=== PATIENT | female | born 1940 | race Asian ===

== ENCOUNTER 2022-08-14 22:45 | Inpatient (IN) | payer OTHER, MEDICAID ==
[~2022-08-14] VITALS: Ht 154.9 cm; Wt 51.7 kg
[2022-08-14] MEDS: 0.45% NACL 1,000 ML IV SCH
--- NOTE | 2022-08-14 22:55 | NUR ---
RAPID RESPONSE -Called Rapid response team DIANA upon pt arrived to [facility] unit at room 119-AJohnson GARZON RN and team are at bedside. Rapid Response team Jailyn and Junaid resp therapists, Destineeporsha nurse, Georgie Biggs (building construction supervisor) are in the room. VS 99.2, 85/55,118,22, b2wwp=80% with Niy3=492%. Jailyn-RT stated that she will wean patient @50% later. Will recheck BP and notify Dr. Wright. Family is at bedside Leif son-POA and sister. EKG completed shows uncontrolled Afib with RVR 108. -Patient is direct admission w/out no order. Will call md to get an order once pt is stabilize.
--- NOTE | 2022-08-14 23:08 | NUR ---
NOTES; CALLED X2 Dr. Wright,NO ANSWER, LEFT MESSAGE FOR MD TO RETURN CALLBACK TO GET ADMISSION ORDER. -WILL CALL AGAIN.
--- NOTE | 2022-08-14 23:10 | NUR ---
NOTES; DR. RED CALLED BACK AND RECEIVED AN ORDER TO ADMIT PATIENT TO INPATIENT TELEMETRY WITH DX LIVER CIRRHOSIS, ESRD, STROKE; NPO MIDNIGHT FOR PARACENTESIS IN AM, IVF 1/2NS @ 40 AFTER NPO; HAVE RADIOLOGIST PERFORM PARACENTESIS PER MD; CONSULTS (GI-DR. WICK, PULMON-MIKKI, AND CARDIO-Lyly PORTER); ACCUCK Q 6 WITH REGULAR INSULIN COVERAGE. NO ORDERS IN AM (LAB, CXR, OR EKG). BLOOD CX AND NO MEDICATION FOR AFIB PER MD.
--- NOTE | 2022-08-14 23:15 | NUR ---
NOTES; -Pt is nonverbal, a/ox1-2. Trachea w/ vent setting at VM=697, Xq89=939%, peep=5,AC=18. Jailyn RT will wean off Fio2 later,w7yux=451% now. Pacemaker Left chest wall. TAYLOR old shunt both thrill and bruit present. TAYLOR midline was placed on 07/31/22 and hx of c-diff (now tested negative) per Homar-nurse's statement on a phone from [place]. Flexiseal in place. Generalized edematous noted. NGT on Lt nares. Son & daughter are still at bedside. Addendum: 08/15/22 at 0213 by [facility], GUILHERME RN ADDITIONAL NOTES; PERMACATH RIGHT UPPER CHEST WALL PRESENT. LAST HEMODIALYSIS REMOVED 1.5 LITER (08/14) AND 1.2 LITER (08/13) PER HOMAR-NURSE ENDORSED ON PHONE FROM [facility].
[2022-08-14 23:51] VITALS: BP_SYST 77
--- NOTE | 2022-08-14 23:55 | NUR ---
NOTIFIED DR. RED REGARDING HYPOTENSION (BP=77/45) AND PT IS STILL UNCONTROLLED AFIB 108-111. -TRANSFER PATIENT TO ICU PER MD. WILL NOTIFY ANDRES CORONADO NURSE.
[2022-08-15] VITALS (31 sets, daily range): BP systolic 11–130
--- NOTE | 2022-08-15 00:05 | NUR ---
TRANSFERRING TO ICU BY BED -ENDORSED TO PERCY MOLINA TO CONTINUITY OF CARE. Pt's condition stable. Family is at waiting room. Addendum: 08/15/22 at 0214 by [facility], GUILHERME RN ADDITIONAL; ICU BED 4.
--- NOTE | 2022-08-15 00:05 | NUR ---
TELEMETRY TRANSFER Pt received from tele via bed accompanied by Tele staff and RT. Pt arrived with BVM in use. Pt non-verbal with eyes open with left eye gaze. Pt has limited left arm movement. Generalized edema present. Left nare NGT clamped. L upper arm midline PICC. Left upper chest Pacemaker noted, Pt in controlled AFIB. Right upper chest Perma cath present. Right upper arm with AV shunt bruit & thrill present. Pt resting quietly.
--- NOTE | 2022-08-15 02:00 | NUR ---
CHANGE IN CAREGIVER Report given to Rashad VANEGAS.
[2022-08-15] MEDS ORDERED: RESEYE BOTH EYES (02:37)
[2022-08-15] MEDS ORDERED: DARB100V SUBCUT (02:37)
[2022-08-15] MEDS ORDERED: acetylcysteine INH (02:37)
[2022-08-15] MEDS ORDERED: ASPI-1393 GT (02:37)
[2022-08-15] MEDS ORDERED: TYLL650 PO (02:37)
[2022-08-15] MEDS ORDERED: LACT10SO6 GT (04:06)
[2022-08-15] MEDS ORDERED: [UNRECOGNIZED DRUG - CODE] IV (04:06)
[2022-08-15] MEDS ORDERED: FLUC200T IVPB (04:06)
[2022-08-15] MEDS ORDERED: HEPA500015 IV (04:06)
[2022-08-15] MEDS ORDERED: DONE10TA44 GT (04:06)
[2022-08-15] MEDS ORDERED: LANS30CA53 GT (04:06)
[2022-08-15] MEDS ORDERED: INSU100V7 SUBCUT (04:06)
[2022-08-15] MEDS ORDERED: DEXT50DI5 IV ×2 (04:06)
[2022-08-15] MEDS ORDERED: IPRA4AER INH (04:06)
[2022-08-15] MEDS ORDERED: COLL100 PO ×2 (04:06)
[2022-08-15] MEDS ORDERED: FOLI-43 GT (04:06)
[2022-08-15] MEDS ORDERED: HEPA500015 SUBCUT (04:06)
[2022-08-15] MEDS ORDERED: SILV50CR43 TP (04:43)
[2022-08-15] MEDS ORDERED: MERO500V23 IV (04:43)
[2022-08-15] MEDS ORDERED: MIDO5TAB4 GT (04:43)
[2022-08-15] MEDS ORDERED: RIFA200T10 GT (04:43)
[2022-08-15] MEDS ORDERED: [UNRECOGNIZED DRUG - OTHER] GT (04:43)
[2022-08-15] MEDS ORDERED: THIA100T70 GT (04:43)
[2022-08-15] MEDS ORDERED: NL IV (04:43)
[2022-08-15] MEDS ORDERED: SYN50 INJ (04:43)
[2022-08-15] MEDS ORDERED: SENN8.6T19 GT (04:43)
[2022-08-15] MEDS ORDERED: METO25TA6 IV (04:43)
[2022-08-15] MEDS ORDERED: ONDA2VIA4 IV (04:43)
[2022-08-15] MEDS ORDERED: MIDO10TA GT (04:43)
[2022-08-15] MEDS ORDERED: ZINC113O14 TP (04:43)
[2022-08-15] MEDS ORDERED: POLY17PO4 GT (04:43)
[2022-08-15 05:16] LABS: BASOPHILS % (AUTO) 0.3 % (0.0-2.0); EOSINOPHILS # (AUTO) 0.2 K/uL (0.0-0.4); EOSINOPHILS % (AUTO) 1.6 % (0.0-4.0); HEMATOCRIT 27.5 % (36-48); LYMPHOCYTES # (AUTO) 0.8 K/uL (1.0-5.5); LYMPHOCYTES % (AUTO) 7.2 % (20.5-51.5); MEAN CORPUSCULAR HEMOGLOBIN 36 pg (27-31); MEAN CORPUSCULAR HGB CONC 33 % (32-36); MEAN CORPUSCULAR VOLUME 110 fL (79.0-98.0); MONOCYTES # (AUTO) 1.1 K/uL (0.0-1.0); MONOCYTES % (AUTO) 9.5 % (1.7-9.3); NEUTROPHILS # (AUTO) 9.4 K/uL (1.8-7.7); NEUTROPHILS % (AUTO) 81.4 % (40.0-70.0); PLATELET COUNT (AUTO) 160 K/uL (130-430); RED BLOOD CELL COUNT(AUTO) 2.51 MIL/uL (4.2-6.2); RED CELL DISTRIBUTION WIDTH 20.8 % (9.0-15.0); WHITE BLOOD COUNT (AUTO) 11.5 K/uL (4.8-10.8)
[2022-08-15 05:28] LABS: ANION GAP 11 (5-15); CALCIUM 8.8 mg/dL (8.4-11.0); CHLORIDE 104 mmol/L (98-107); CREATININE 2.83 mg/dL (0.55-1.30); GLUCOSE 144 mg/dL (70-99); UREA NITROGEN, BLOOD 39 mg/dL (8-21)
--- NOTE | 2022-08-15 05:35 | NUR ---
CONSULTATION PAGED/CALLED Reason for Consultation: Hypoxia Person Who was Notified: Fortunato Consulting Physician: Dr Lopez Event Representative Specialty: Pulmonary Ordering Physician: Dr Wright
--- NOTE | 2022-08-15 05:40 | NUR ---
CONSULTATION PAGED/CALLED Reason for Consultation: AFib Person Who was Notified: Purvi Consulting Physician: Dr Vargas Barrel Washer Specialty: Cardiology Ordering Physician: Dr Wright
--- NOTE | 2022-08-15 05:41 | NUR ---
CONSULTATION PAGED/CALLED Reason for Consultation: GT Placement Person Who was Notified: Margot Consulting Physician: Dr Smalls Marketing Support Coordinator Specialty: GI Ordering Physician: Dr Wright
[2022-08-15 05:53] LABS: INR 1.2 (0.8-1.2); PROTHROMBIN TIME 12.2 SECS (9.5-12.5)
--- NOTE | 2022-08-15 07:30 | NUR ---
Opening Received report on pt. HR in 160s, pt in no signs of pain or distress, trach to vent. Pt able to track but does not follow commands, weak arm movements. Pt with IVF infusing to left UA midline. Flexiseal in place with brown liquid stool. Skin issues present. Offloaded heels with pillows.
--- NOTE | 2022-08-15 07:40 | NUR ---
Dr. Cooper notified regarding pt's HR in 160s with no standing orders. New orders made for adenosine 6 mg & 12 mg if no resolve, and EKG.
[2022-08-15] MEDS ORDERED: ADENOSINE 6MG/2ML VIAL IVP ONE ×2 (07:45)
[2022-08-15] MEDS ORDERED: ADENOSINE 6MG/2ML VIAL ONE ×2 (07:49→08:01)
[2022-08-15 08:13] LABS: ALBUMIN 3.3 g/dL (3.4-4.8); BILIRUBIN,DIRECT 0.8 mg/dL (0.0-0.3); TOTAL BILIRUBIN 1.8 mg/dL (0.0-1.0)
[2022-08-15] MEDS ORDERED: dilTIAZem HCL IVP 5 MG/ML VIAL IVP ONE (08:15)
--- NOTE | 2022-08-15 08:15 | NUR ---
HR still 150-160s despite receiving adenosine 6 mg and 12 mg IVP per MD order. Notified Dr. Palma Cooper regarding outcome, new orders made for cardizem IVP and cardizem drip.
[2022-08-15] MEDS ORDERED: D5W 1,000 ML IV PRN (08:30)
[2022-08-15] MEDS ORDERED: GLUCOSE (DEXTROSE) ORAL GEL -Adults PO PRN (08:30)
[2022-08-15] MEDS ORDERED: DEXTROSE 50%-WATER 50 ML DISP.SYRIN IVP PRN (08:30)
[2022-08-15] MEDS ORDERED: IPRATROPIUM/ALBUTEROL SULFATE 3 ML AMPUL.NEB (DUONEB) INH PRN (10:00)
[2022-08-15] MEDS ORDERED: CEFAZOLIN 1 GM IVPB PREMIX 50 ML IV ONE (10:15)
--- NOTE | 2022-08-15 10:47 | NUR ---
Spoke with pt's son Maximiliano White regarding updates and current condition. Son is aware of PEG tube placement for tomorrow, states he will be in later to sign consent.
[2022-08-15] MEDS: PHENYLEPHRINE HCL 100 MG in NS 240 ML IV PRN (11:54)
[2022-08-15] MEDS: INSULIN REGULAR, HUMAN 100 UNITS/ML, 3 ML VIAL (humuLIN R) SUBCUT PRN (12:15)
[2022-08-15] MEDS: DILTIAZEM HCL 30 MG TABLET PO SCH ×2 (14:19→22:00)
--- NOTE | 2022-08-15 15:11 | NUR ---
RT NOTES FIO2 to 0.30.
[2022-08-15] MEDS: LACTULOSE 20 GM/30 ML UDC NG SCH ×2 (15:19→21:00)
--- NOTE | 2022-08-15 19:15 | NUR ---
Closing Pt currently in dialysis. PEG consent signed and placed in chart. Pt's son, Maximiliano, requesting for social work and case management assistance for placement post procedure and stabilization. Endorsed plan of care to RN.
--- NOTE | 2022-08-15 19:54 | NUR ---
HIGH ALERT NOTE: Called Dr. Osorio back at identified within the medical roster to verify physician authenticity. For Heparin Dialysis flush.
[2022-08-15] MEDS ORDERED: HEPARIN SODIUM,PORCINE 5,000 UNITS/ML VIAL MC ONE (20:00)
[2022-08-16] VITALS (36 sets, daily range): BP systolic 85–147
[2022-08-16] MEDS: 0.45% NACL 1,000 ML IV SCH ×2 (01:29→17:04)
[2022-08-16] MEDS: DILTIAZEM HCL 30 MG TABLET PO SCH ×3 (05:31→22:41)
[2022-08-16 05:41] LABS: BASOPHILS # (AUTO) 0.1 K/uL (0.0-0.2); BASOPHILS % (AUTO) 0.5 % (0.0-2.0); EOSINOPHILS # (AUTO) 0.1 K/uL (0.0-0.4); EOSINOPHILS % (AUTO) 0.8 % (0.0-4.0); HEMATOCRIT 27.1 % (36-48); HEMOGLOBIN 8.8 g/dL (12.0-16.0); LYMPHOCYTES # (AUTO) 0.8 K/uL (1.0-5.5); LYMPHOCYTES % (AUTO) 6.5 % (20.5-51.5); MEAN CORPUSCULAR HEMOGLOBIN 36 pg (27-31); MEAN CORPUSCULAR HGB CONC 32 % (32-36); MEAN CORPUSCULAR VOLUME 110 fL (79.0-98.0); MONOCYTES % (AUTO) 7.8 % (1.7-9.3); NEUTROPHILS # (AUTO) 10.4 K/uL (1.8-7.7); NEUTROPHILS % (AUTO) 84.4 % (40.0-70.0); PLATELET COUNT (AUTO) 191 K/uL (130-430); RED BLOOD CELL COUNT(AUTO) 2.48 MIL/uL (4.2-6.2); RED CELL DISTRIBUTION WIDTH 20.2 % (9.0-15.0); WHITE BLOOD COUNT (AUTO) 12.3 K/uL (4.8-10.8)
[2022-08-16 06:03] LABS: ANION GAP 10 (5-15); CALCIUM 8.3 mg/dL (8.4-11.0); CHLORIDE 102 mmol/L (98-107); CREATININE 1.97 mg/dL (0.55-1.30); GLUCOSE 120 mg/dL (70-99); UREA NITROGEN, BLOOD 29 mg/dL (8-21)
[2022-08-16 06:18] LABS: INR 1.2 (0.8-1.2); PROTHROMBIN TIME 12.2 SECS (9.5-12.5)
[2022-08-16] MEDS ORDERED: SIMETHICONE 40 MG/0.6 ML ML ONE (07:00)
[2022-08-16] MEDS ORDERED: fentaNYL CITRATE/PF 100 MCG/2 ML AMP ONE (07:00)
[2022-08-16] MEDS ORDERED: MIDAZOLAM HCL 5 MG/5 ML VIAL ONE (07:00)
[2022-08-16] MEDS ORDERED: CEFAZOLIN 1 GM IVPB PREMIX 50 ML IV ONE (07:00)
--- NOTE | 2022-08-16 07:45 | NUR ---
MD BECK AT BEDSIDE. STATED PEG TUBE WILL NOT BE PLACED UNTIL PARACENTESIS IS COMPLETED. VERIFIED ORDER FOR PARACENTESIS, ORDER WAS CANCELLED BY RADIOLOGIST DUE TO NOT ENOUGH FLUID FOR PROCEDURE. MARC VANEGAS NOTIFIED TO NOTIFY MD BECK. WILL AWAITING ADDITIONAL ORDERS.
[2022-08-16] MEDS: LACTULOSE 20 GM/30 ML UDC NG SCH ×3 (09:50→21:12)
--- NOTE | 2022-08-16 10:00 | NUR ---
SPOKE TO MARC VANEGAS FROM SURGERY, PLAN IS TO PERFORM PARACENTESIS TO DRAIN ANY EXISTING FLUIDS PRIOR TO PEG TUBE PLACEMENT. PROCEDURE RE ORDERED UNDER MD RED BY MARC VANEGAS. TO CLARIFY PROCEDURE WITH JEWEL INSPECTOR.
--- NOTE | 2022-08-16 10:10 | NUR ---
MD RED BEDSIDE ASSESSING PATIENT AND SPEAKING WITH SON LUDY. NO NEW ORDERS RECEIVED. REINFORCED THAT PARACENTESIS MUST BE COMPLETED PRIOR TO PEG TUBE PLACEMENT. 1/2NS@40CC CLARIFIED DUE TO PATIENT ON HEMODIALYSIS. OK TO CONT IVF UNTIL PEG TUBE PLACED AND PATIENT STARTED TUBE FEEDING PER MD RED. PT VSS. NAD NOTED. WILL CONT TO MONITOR PT.
--- NOTE | 2022-08-16 10:26 | NUR ---
MD GODINEZ MADE AWARE OF NEW ID CONSULT.
--- NOTE | 2022-08-16 15:00 | NUR ---
MD DUMONT RADIOLOGIST AT BEDSIDE FOR PARACENTESIS WITH U/[employer] TECH AT BEDSIDE. TIMEOUT PERFORMED AT 1600. PROCEDURE STARTED AT 1604. PROCEDURE COMPLETED AT 1612. TOTAL OF 600CC DRAINED FOR PEG PLACEMENT TOMORROW. PER MD DUMONT, NO PATHOPHYSIOLOGY ORDERS ENTERED, PROCEDURE SIMPLY TO DRAIN FLUID PRIOR TO PEG PLACEMENT TO AVOID LEAKING PER MD BECK. PT TOLERATED WELL. VSS. NAD NOTED. WILL CONT TO MONITOR PT.
[2022-08-16] MEDS: CEFEPIME 2 GM in D5W 100 ML IV SCH (16:00)
--- NOTE | 2022-08-16 16:20 | NUR ---
Developer Analyst re: D/C planning after the discharge In to speak with the son, Maximiliano this afternoon in the ICU. I met with the son privately in the waiting area of ICU. Per son, the patient at one time was living in her ow home with her , however since her decline, she has been in a few different hospitals. The patient was the caregiver to her . She does not have a Power of Dry Cleaning Machine Operator. her PCP is Dr. Leal in [place]. The son states that at one point they were trying to complete a Power of Dry Cleaning Machine Operator, however never got to complete it. He was inquiring on what other options he had. He indicated there is a family trust, but he was looking at getting POA. I asked if he was sure there medical POA was not written within the trust, but he states he didn't think so, because he had not seen it. The son was advised that if there is no POA, the patient is not of sound mind and able to make decisions for themselves, then the next option is to get conservatorship through the court. I informed him that conservatorship means that he is requesting a tenoner operator the ability to make decisions on behalf of the patient, which requires a process to take place. The son was insistent that he wanted to put something in place quickly, however I told him that conservatorship is not a quick process; it can take months. I directed the son to the local courts system to start the process. He requested that the process start here at the hospital. I advised him that the hospital does not start the process, but he needed to go to the court to get an application. I Provided the son with contact information of the [facility] Department of Mental Health for additional assistance. As to discharge, the son advised that he wanted his mother to return back to [facility].
[2022-08-16] MEDS: INSULIN REGULAR, HUMAN 100 UNITS/ML, 3 ML VIAL (humuLIN R) SUBCUT PRN (18:41)
[2022-08-17] VITALS (43 sets, daily range): BP systolic 85–136
[2022-08-17 05:47] LABS: BASOPHILS % (AUTO) 0.3 % (0.0-2.0); EOSINOPHILS # (AUTO) 0.1 K/uL (0.0-0.4); EOSINOPHILS % (AUTO) 0.4 % (0.0-4.0); HEMATOCRIT 26.5 % (36-48); HEMOGLOBIN 8.7 g/dL (12.0-16.0); LYMPHOCYTES # (AUTO) 0.6 K/uL (1.0-5.5); MEAN CORPUSCULAR HEMOGLOBIN 36 pg (27-31); MEAN CORPUSCULAR HGB CONC 33 % (32-36); MEAN CORPUSCULAR VOLUME 109 fL (79.0-98.0); MONOCYTES % (AUTO) 7.9 % (1.7-9.3); NEUTROPHILS # (AUTO) 11.1 K/uL (1.8-7.7); NEUTROPHILS % (AUTO) 86.4 % (40.0-70.0); PLATELET COUNT (AUTO) 218 K/uL (130-430); RED BLOOD CELL COUNT(AUTO) 2.43 MIL/uL (4.2-6.2); RED CELL DISTRIBUTION WIDTH 20.2 % (9.0-15.0); WHITE BLOOD COUNT (AUTO) 12.8 K/uL (4.8-10.8)
[2022-08-17 06:03] LABS: ANION GAP 12 (5-15); CALCIUM 8.3 mg/dL (8.4-11.0); CHLORIDE 100 mmol/L (98-107); CREATININE 2.68 mg/dL (0.55-1.30); GLUCOSE 152 mg/dL (70-99); UREA NITROGEN, BLOOD 52 mg/dL (8-21)
[2022-08-17] MEDS: DILTIAZEM HCL 30 MG TABLET PO SCH ×3 (06:43→18:00)
--- NOTE | 2022-08-17 07:00 | NUR ---
SPOKE TO DR. Palma PORTER MD INFORMED ABOUT INCREASE IN HR.ORDERS TO RESTART CARDIZEM DRIP AND INCREASE PO DOSE. WILL CARRY OUT ORDER.
[2022-08-17] MEDS ORDERED: SIMETHICONE 40 MG/0.6 ML ML ONE (07:12)
[2022-08-17] MEDS ORDERED: fentaNYL CITRATE/PF 100 MCG/2 ML AMP ONE (07:12)
[2022-08-17] MEDS ORDERED: MIDAZOLAM HCL 5 MG/5 ML VIAL ONE (07:13)
[2022-08-17] MEDS ORDERED: CEFAZOLIN 1 GM IVPB PREMIX 50 ML IV ONE (08:00)
[2022-08-17] MEDS: LACTULOSE 20 GM/30 ML UDC NG SCH ×3 (09:00→21:00)
[2022-08-17] MEDS ORDERED: PANTOPRAZOLE SODIUM 40 MG/VIAL (PROTONIX) IVP ONE (10:00)
[2022-08-17] MEDS: FLUCONAZOLE 100 mg/ NS 50 ML IV SCH (11:51)
[2022-08-17] MEDS: CEFEPIME 2 GM in D5W 100 ML IV SCH (14:52)
--- NOTE | 2022-08-17 23:04 | NUR ---
[facility] SPOKE WITH YUNG NURSING DRENCHER AT [facility] REGARDING PT TRANSFER. FAMILY IS UNCOMFORTABLE WITH THE PT TRANSPORTING THIS LATE AT NIGHT D/T PREVIOUS EXPERIR Addendum: 08/17/22 at 2308 by Johana Brown RN NOTE CONTINUED: EXPERIENCES. TRANSPORT ORIGINALLY SCHEDULED FOR 1999 ON 08/17 AND HAS BEEN CONTINUALLY DELAYED THIS EVENING. TRANSPORT RESCHEDULED FOR 08/18 PER FAMILY'S REQUEST VIA [facility]. CONTAMINATED LAND CONSULTANT MADE AWARE.
--- NOTE | 2022-08-17 23:15 | NUR ---
Family continues at bedside waiting for transfer to have place as scheduled but ETA has been moved for the third time. Original ETA 2030, which was moved to 2230 and now for the third time ETA 2345. Family reported has had similar experience with [facility] not honoring times of arrival for transport. Patient's son Maximiliano has decided to withdraw consent for transfer at this time and to re schedule new time for tomorrow during day due to "possible exposure to weather" for the patient, and the likelihood of ambulance service to continue to extend ETA. At this time, family has withdrawn transfer consent until tomorrow. Johana VANEGAS charge was informed and Parker Parson was contacted. Parker reported this to be acceptable as long as the next schedule transport occurs after 0700 am. [facility] ambulance service was contacted to cancel pierre's transfer and new scheduled ETA has been confirmed for 1130 am; [facility]
[2022-08-17] MEDS: PHENYLEPHRINE HCL 100 MG in NS 240 ML IV PRN (23:23)
[2022-08-17] MEDS: PANTOPRAZOLE SODIUM 40 MG/VIAL (PROTONIX) IVP SCH (23:25)
--- NOTE | 2022-08-17 23:35 | NUR ---
Blood pressure continues to decrease being the latest 88/50 but before that 60/32. Neosynephrine drip started at this time.
[2022-08-17] MEDS: 0.45% NACL 1,000 ML IV SCH (23:45)
[2022-08-18] VITALS (30 sets, daily range): BP systolic 11–152
[2022-08-18] MEDS: DILTIAZEM HCL 30 MG TABLET PO SCH ×4 (02:05→18:00)
[2022-08-18] MEDS: 0.45% NACL 1,000 ML IV SCH (02:25)
[2022-08-18 05:41] LABS: BASOPHILS % (AUTO) 0.2 % (0.0-2.0); EOSINOPHILS # (AUTO) 0.1 K/uL (0.0-0.4); EOSINOPHILS % (AUTO) 0.8 % (0.0-4.0); HEMATOCRIT 23.5 % (36-48); HEMOGLOBIN 7.8 g/dL (12.0-16.0); LYMPHOCYTES # (AUTO) 0.5 K/uL (1.0-5.5); LYMPHOCYTES % (AUTO) 4.4 % (20.5-51.5); MEAN CORPUSCULAR HEMOGLOBIN 36 pg (27-31); MEAN CORPUSCULAR HGB CONC 33 % (32-36); MEAN CORPUSCULAR VOLUME 108 fL (79.0-98.0); MONOCYTES # (AUTO) 0.6 K/uL (0.0-1.0); MONOCYTES % (AUTO) 5.6 % (1.7-9.3); NEUTROPHILS # (AUTO) 9.4 K/uL (1.8-7.7); PLATELET COUNT (AUTO) 176 K/uL (130-430); RED BLOOD CELL COUNT(AUTO) 2.17 MIL/uL (4.2-6.2); RED CELL DISTRIBUTION WIDTH 19.7 % (9.0-15.0); WHITE BLOOD COUNT (AUTO) 10.5 K/uL (4.8-10.8)
[2022-08-18 06:09] LABS: ANION GAP 11 (5-15); CALCIUM 7.7 mg/dL (8.4-11.0); CHLORIDE 99 mmol/L (98-107); CREATININE 1.96 mg/dL (0.55-1.30); GLUCOSE 95 mg/dL (70-99); UREA NITROGEN, BLOOD 33 mg/dL (8-21)
[2022-08-18] MEDS: FLUCONAZOLE 100 mg/ NS 50 ML IV SCH (10:19)
[2022-08-18] MEDS: PANTOPRAZOLE SODIUM 40 MG/VIAL (PROTONIX) IVP SCH ×2 (10:19→21:18)
[2022-08-18] MEDS: LACTULOSE 20 GM/30 ML UDC NG SCH ×3 (10:19→21:18)
[2022-08-18] MEDS ORDERED: POTASSIUM CHLORIDE 20 MEQ/PKT PACKET NG ONE (10:30)
[2022-08-18] MEDS ORDERED: VANCOMYCIN HCL 500 MG in NS 100 ML IV SCH (12:00)
[2022-08-18] MEDS: CEFEPIME 2 GM in D5W 100 ML IV SCH (16:48)
--- NOTE | 2022-08-18 17:04 | NUR ---
Nutrition F/U Aerial Installer reviewed pts current EMR including diet hx, physician notes, nursing notes, pertinent labs/meds/procedures, care trends and care activity. Admitting Diagnosis Liver Cirrhosis, ESRD, Stroke Reviewed Pertinent Medical/Surgical Hx Medical Record Other Medical History Comment: Per EMR: 82 YOF who presented to the ER secondary to hypoxemic RF. Pt transferred from [facility] to [facility] for chronic ventilator management. Pt is currently on mech. vent. Via tracheostomy. Pt was transferred here for permacath placement PEG placement as well as possible paracentesis. On arrival, pt was noted to be in Atr Fibr w/ RVR. Pt was transferred to ICU - she was in shock, likely secondary to cardiogenic etiologies. Critical care has been consulted to [facility]. - PMH: Chronic respiratory failure, liver cirrhosis, ESRD, hypothyroidism, sepsis. Still on vent. Support. PEG on 08/18 (DI attended ICU Rounds on 08/17 and PEG was placed that morning). HD per Nephro. D/C Summary: GT placement & paracentesis. s/p stroke. Liver cirrhosis. Respiratory failure. Subjective Information Aerial Installer checked in on pt and noticed there was no TF running. Spoke w/ RN (Maureen) and said the TF was stopped yesterday because she was supposed to get D/C yesterday. RN said she should be getting D/C today. Per GI notes, plan for TF to be started @ [facility]. Current Diet Order/Nutrition Support Nepro @ 40 mL/hr w/ Free Water Flush 100 mL via GT x 1 day Patient/Significant Other Unable To Verbalize Education Provided Not Indicated Pertinent Medications Protonix, Lactulose, Albuterol Pertinent Labs K+ 3.4L (trending down), BUN 33H (trending up), Cre 1.96H (trending down) Height (Feet) 5 feet Height (Inches) 1.00 inches Weight (Pounds) 114 pounds (Stable since 08/16) Patient Weight 51.71 kg Body Mass Index 21.54 kg/m2 %IBW 109 [place]/Adjusted Body Weight 105#/48kg Recent Weight Change Unable to assess Food Allergies Unable to assess Usual Diet At Home Unable to assess Skin Integrity Comment: Joey: 11 Wounds: Erythema on coccyx; ruptured blister on R arm Edema: 2+ non-pitting on R hand Current % PO NPO Estimated Energy Expenditure (kcals/day) [NEW] 1137 (PSU 2003 ICU/Vent. Status; KIN 91Orly: Tmax 37'C, Ve 9.3) Estimated Protein Required (g/day) 78-104 (1.5-2 g/kg CBW [52kg] d/t ESRD on HD, wounds, sepsis) Estimated Fluid Required (l/day) Defer to MD (ESRD on HD) Problem/Etiology/Signs/Symptoms * Increased nutritional needs R/T metabolic demands AEB estimated nutritional requirements for ESRD on HD, sepsis, and ICU status. Expected Outcomes/Goals * Monitor nutrition support w/ goal of pt meeting >80% of estimated nutritional needs, TF tolerance, nutrition-related labs trending WNL, normal GI function and BM regime, skin integrity w/ wt. maintenance. Dietitian Recommendations * Consider Nepro @ 15 mL/hr, Андрей BID, Prosource BID, via PEG: - Provides (w/ Андрей BID, Prosource BID): 948 kcals, 64 g PRO, and 262 mL of free water daily. - Meets: 83% est. kcal needs and 82% lower. est. PRO needs daily. * Defer est. fluid needs to MD d/t ESRD on HD. Follow Up High Risk: F/U in 2-3days MS ROSE, GALINA
--- NOTE | 2022-08-18 17:05 | NUR ---
Dietitian Recommendations * Consider Nepro @ 15 mL/hr, Андрей BID, Prosource BID, via PEG: - Provides (w/ Андрей BID, Prosource BID): 948 kcals, 64 g PRO, and 262 mL of free water daily. - Meets: 83% est. kcal needs and 82% lower. est. PRO needs daily. * Defer est. fluid needs to MD d/t ESRD on HD. LP, MS, RD Please refer to Nutrition F/U for details.
--- NOTE | 2022-08-18 19:50 | NUR ---
Blood pressure continues to drop; current BP 76/31. Patient is expected to be transferred to [facility]. Dr Devine contacted after report given that patient is currently max on Neosynephrine at 3 mcg/k/min. Orders received for second vasopressor medication Levophed drip and will hold transfer for tomorrow. [facility] was notified, spoke to [place] and transport by [facility] was also contacted and transfer put on "will call".
[2022-08-18] MEDS ORDERED: NOREPINEPHRINE BITARTRATE 4 MG in D5W 246 ML IV PRN (20:00)
[2022-08-18] MEDS ORDERED: NOREPINEPHRINE 4 MG/4 ML VIAL IV ONE ×2 (20:05→23:02)
--- NOTE | 2022-08-18 22:52 | NUR ---
Dr Lyly Cooper contacted to report HR 155-170. Orders received to give Digoxin 0.5 mg x1 now and if after 4 hrs HR still over 120 give Digoxin 0.25 mg x1
[2022-08-18] MEDS ORDERED: DIGOXIN 0.5 MG/2 ML AMP ONE (22:57)
[2022-08-18] MEDS ORDERED: DIGOXIN 0.5 MG/2 ML AMP IVP ONE (23:00)
[2022-08-19] VITALS (8 sets, daily range): BP systolic 80–145
[2022-08-19] MEDS ORDERED: PHENYLEPHRINE HCL 10 MG/ML VIAL (NEOSYNEPHRINE) ONE (00:09)
[2022-08-19] MEDS ORDERED: NOREPINEPHRINE BITARTRATE 16 MG in D5W 234 ML IV PRN (00:30)
[2022-08-19] MEDS: PHENYLEPHRINE HCL 100 MG in NS 240 ML IV PRN (00:34)
[2022-08-19] MEDS: DILTIAZEM HCL 30 MG TABLET PO SCH ×2 (00:37→06:00)
[2022-08-19] MEDS ORDERED: NOREPINEPHRINE 4 MG/4 ML VIAL IV ONE (04:47)
[2022-08-19 05:37] LABS: BASOPHILS # (AUTO) 0.1 K/uL (0.0-0.2); BASOPHILS % (AUTO) 0.3 % (0.0-2.0); EOSINOPHILS # (AUTO) 0.1 K/uL (0.0-0.4); EOSINOPHILS % (AUTO) 0.4 % (0.0-4.0); HEMOGLOBIN 9.2 g/dL (12.0-16.0); LYMPHOCYTES % (AUTO) 4.2 % (20.5-51.5); MEAN CORPUSCULAR HEMOGLOBIN 35 pg (27-31); MEAN CORPUSCULAR HGB CONC 30 % (32-36); MEAN CORPUSCULAR VOLUME 119 fL (79.0-98.0); MONOCYTES # (AUTO) 1.9 K/uL (0.0-1.0); MONOCYTES % (AUTO) 7.4 % (1.7-9.3); NEUTROPHILS % (AUTO) 87.7 % (40.0-70.0); PLATELET COUNT (AUTO) 248 K/uL (130-430); WHITE BLOOD COUNT (AUTO) 25.1 K/uL (4.8-10.8)
[2022-08-19 05:52] LABS: ERYTHROCYTE SEDIMENTATION RATE 46 MM/HR (0-20)
[2022-08-19] MEDS ORDERED: CALCIUM CHLORIDE 1 GM/10 ML DISP.SYRIN (14 mEq Ca++/SYR) ONE (06:00)
[2022-08-19] MEDS ORDERED: SODIUM BICARBONATE 8.4% JECT 50 MEQ/50 ML SYRINGE ONE (06:00)
[2022-08-19] MEDS ORDERED: EPINEPHrine JECT 0.1 MG/ML SYR ONE (06:00)
[2022-08-19 06:01] LABS: ANION GAP 24 (5-15); C-REACTIVE PROTEIN QUANT 14.9 mg/dL (0-0.5); CHLORIDE 95 mmol/L (98-107); GLUCOSE 118 mg/dL (70-99); PHOSPHORUS 5.4 mg/dL (2.7-4.5); UREA NITROGEN, BLOOD 36 mg/dL (8-21)
--- NOTE | 2022-08-19 07:00 | NUR ---
VENTED VIA BOSONIEA202 AC-18,FIO2-30%,PEEP-5,SUCTIONED. ON DRIPS- LEVOPHED 1MCG/KG/MIN. NEOSYNEPRINE 3MCG/KG/MIN.0745 PT. JORGE 40-50 HR. THEN ASYSTOLE. ON CHEMICAL CODE. ACLS GIVEN ER DOCTOR HERE 0803- PRONOUNCED FAMILY NOTIFIED. POST MORTEM DONE.0900- FAMILY HERE. [facility] AND NOTIFIED.STORAGE ARCHITECT . 1330- MORTUARY NOTIFIED AND BODY TAKEN.
--- NOTE | 2022-08-19 07:56 | NUR ---
Jerardo Blue called on patient. Dr. Franklin at bedside.
== END 2022-08-19 08:03 | DRG 870 ==
LOC: STU 22:45 → SIC 08-15 00:05
PROVIDERS: ADMIT Specialist; ATTEND Specialist
PROC: 5A1955Z Respiratory Ventilation, Greater than 96 Consecutive Hours (ICD-10-PCS; 2022-08-14)
PROC: 5A1D70Z Performance of Urinary Filtration, Intermittent, Less than 6 Hours Per Day (ICD-10-PCS; 2022-08-15)
PROC: 0W9G3ZZ Drainage of Peritoneal Cavity, Percutaneous Approach (ICD-10-PCS; 2022-08-16)
PROC: 5A1D70Z Performance of Urinary Filtration, Intermittent, Less than 6 Hours Per Day (ICD-10-PCS; 2022-08-17)
PROC: 0DB78ZX Excision of Stomach, Pylorus, Via Natural or Artificial Opening Endoscopic, Diagnostic (ICD-10-PCS; principal; 2022-08-17 08:30)
PROC: 0DH63UZ Insertion of Feeding Device into Stomach, Percutaneous Approach (ICD-10-PCS; 2022-08-17 08:30)
DX: A41.9 Sepsis, unspecified organism (principal); N18.6 End stage renal disease; J15.6 Pneumonia due to other Gram-negative bacteria; J96.20 Acute and chronic respiratory failure, unspecified whether with hypoxia or hypercapnia; R65.21 Severe sepsis with septic shock; T80.211A Bloodstream infection due to central venous catheter, initial encounter; I48.20 Chronic atrial fibrillation, unspecified; R18.8 Other ascites; Z99.11 Dependence on respirator [ventilator] status; I95.9 Hypotension, unspecified; D64.9 Anemia, unspecified; E83.52 Hypercalcemia; E87.6 Hypokalemia; E87.70 Fluid overload, unspecified; E03.9 Hypothyroidism, unspecified; K74.60 Unspecified cirrhosis of liver; R13.12 Dysphagia, oropharyngeal phase; Z20.822 Contact with and (suspected) exposure to COVID-19; Y83.8 Other surgical procedures as the cause of abnormal reaction of the patient, or of later complication, without mention of misadventure at the time of the procedure; K26.9 Duodenal ulcer, unspecified as acute or chronic, without hemorrhage or perforation; K29.70 Gastritis, unspecified, without bleeding; Z99.2 Dependence on renal dialysis; Z93.0 Tracheostomy status; Z79.4 Long term (current) use of insulin; Z79.899 Other long term (current) drug therapy; Z88.8 Allergy status to other drugs, medicaments and biological substances; Z86.73 Personal history of transient ischemic attack (TIA), and cerebral infarction without residual deficits; Z79.01 Long term (current) use of anticoagulants; Y92.89 Other specified places as the place of occurrence of the external cause
CPT/HCPCS: 36415; 36600; 43239; 43246; 49083; 71045; 76700-TC; 80048; 80076; 82803; 82962; 83735; 84100; 85025; 85610-TC; 85651-TC; 85730-TC; 86140; 87040; 87070-TC; 87081; 87101; 87186-TC; 87205-TC; 87230-TC; 90935; 90937; 92950; 93005; 94002; 94003; 94640; 94760; C9113; G0378; J0153; J0171; J0690; J0692; J1160; J1450; J1644; J1815; J2250; J2370; J3010; J3370; J3490; J7030; J7050; J7060; U0003